=== PATIENT | female | born 2005 | race Caucasian/White ===

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

== ENCOUNTER 2023-05-21 23:20 | Emergency (ER) | payer MEDICAID ==
[~2023-05-21] VITALS: Ht 162.6 cm; Wt 81.8 kg
[2023-05-21 23:30] VITALS: BP 142/85; PULSE 95; RESP 19; O2SAT 99
[2023-05-21] MEDS ORDERED: ibuprofen tablet 400 MG TABLET PO ONE (23:50)
[2023-05-21] MEDS ORDERED: predniSONE 20 mg tablet PO ONE (23:50)
[2023-05-21] MEDS ORDERED: amox tr/potassium clavulanate 875/125mg TAB PO ONE (23:50)
[2023-05-21] MEDS ORDERED: AMOX-580 PO (23:54)
[2023-05-21] MEDS ORDERED: PRED20TA PO (23:54)
[2023-05-21] MEDS ORDERED: IBUP-1984 PO (23:54)
[2023-05-22] MEDS: PENICILLIN G BENZATHINE 2,400,000 UNIT/4 ML SYRINGE IM ONE (00:28)
[2023-05-22 00:30] VITALS: TEMP 98.5
== END 2023-05-22 00:33 | disposition home or self-care (01) ==
LOC: ER 23:21
DX: J02.9 Acute pharyngitis, unspecified (principal); Z79.2 Long term (current) use of antibiotics; Z79.899 Other long term (current) drug therapy
CPT/HCPCS: 96372; 99283; J0561

== ENCOUNTER 2024-04-13 15:39 | Emergency (ER) | payer MEDICAID ==
[~2024-04-13] VITALS: Ht 162.6 cm; Wt 76.6 kg
[2024-04-13 15:41] VITALS: TEMP 97.9
[2024-04-13 17:19] VITALS: BP 111/76; PULSE 74; RESP 16; O2SAT 99
== END 2024-04-13 17:19 | disposition home or self-care (01) ==
LOC: ER 15:40
DX: S62.521A Displaced fracture of distal phalanx of right thumb, initial encounter for closed fracture (principal); Z79.899 Other long term (current) drug therapy; W21.09XA Struck by other hit or thrown ball, initial encounter; Y93.89 Activity, other specified; Y92.89 Other specified places as the place of occurrence of the external cause; Y99.8 Other external cause status
CPT/HCPCS: 29125; 73140; 99283